=== PATIENT | male | born 1990 | race African-American/Black ===

== ENCOUNTER 2021-10-07 20:29 | Inpatient (IN) | payer OTHER, SELFPAY ==
[2021-10-07 20:37] VITALS: BMI 25.8
--- NOTE | 2021-10-07 20:43 | ED_ITS ---
HPI - Psych General Chief Complaint: Psychiatric Symptoms Stated Complaint: section 12 Time Seen by Provider: 10/07/21 20:38 Source: patient and EMS Mode of arrival: EMS Limitations: no limitations History of Present Illness HPI Narrative: Patient comes to the emergency room via EMS after being sectioned by [employer]. Patient lives in a [facility] skilled nursing. Patient states that he has been trying to be compliant with his medications but skips them sometimes. Patient states that he has been having auditory hallucinations for about a month. Patient is under a Section 12 which was started by [facility]. Patient denies any other symptoms. Patient denies suicidal or homicidal ideation Related Data Allergies Allergy/AdvReac Type Severity Reaction Status Date / Time risperidone Allergy Intermediate Shakiness Verified 10/07/21 20:44 Review of Systems Review of Systems: Constitutional : No Weight loss, No Fever, No Chills, No Night Sweats, No Fatigue, No Malaise ENT/Mouth : No Hearing loss, No Ear Pain, No Nasal Congestion, No Sinus Pain, No Hoarseness, No sore throat, No Rhinorrhea, No Swallowing Difficulty Eyes: No Eye Pain, No Swelling, No Redness, No Foreign Body, No Discharge, No Vision Changes Cardiovascular : No Chest Pain, No SOB, No Dyspnea on Exertion, No Orthopnea, No Edema, No Palpitations Respiratory : No Cough, No Sputum, No Wheezing, No Smoke Exposure, No Dyspnea Gastrointestinal : No Nausea, No Vomiting, No Diarrhea, No Constipation, No abdominal Pain, No Hematochezia, No Melena Genitourinary : no irregular bleeding, No Dysuria, No Urinary Frequency, No Hematuria, No Urinary Incontinence, No Urgency, No Flank Pain, No Urinary Flow Changes, No Hesitancy Musculoskeletal : No joint pain, No Myalgias, No Joint Swelling Skin : No Skin Lesions, No rash Neuro : No Weakness, No Numbness, No Paresthesias, No Loss of Consciousness, No Dizziness, No Headache Psych : Complaining of auditory hallucinations Heme/Lymph: No Bruising, No Bleeding,No Lymphadenopathy Endocrine : No Polyuria, No Polydipsia, No Temperature Intolerance [facility] Past Medical History Medical History (Updated 10/07/21 @ 20:47 by Page Ma MD) Schizophrenia Physical Exam Vital Signs: Vital Signs: BMI result Body Mass Index 25.8 Const: Other: Appearance: Alert. Oriented X3. No acute distress. Eyes: Pupils equal, round and reactive to light. ENT: Pharynx normal. Neck: Normal inspection. Neck supple. No lymph nodes noted. No crepitus CVS: Normal heart rate and rhythm. Pulses normal. Normal S1 and S2 Respiratory: No respiratory distress. Breath sounds normal. No Wheezing. No rales Abdomen: Soft and nontender. No rigidity. No distention. good BS x4 Skin: Skin warm and dry. Normal skin color. Normal skin turgor. Extremities: No lower extremity edema. No lower extremity edema. No Lacerations. No Rash Neuro: Oriented X 3. No motor deficit. No sensory deficit. Moving all extermities. No slurred speech. Cranial nerves 2-12 grossly intact Psych: Calm, cooperative, coherent, able to hold a normal conversation Course Course Course Narrative: Patient is already on a Section 12. [facility] is doing a bed search Position of serration started at a 20:[address] out [address] Bragg Discharge Plan Discharge Clinical Impression: Schizophrenia Patient Disposition: Still a Patient
[2021-10-07 20:52] VITALS: BP 106/65; PULSE 81; RESP 17; TEMP 36.6; O2SAT 98
[2021-10-07 21:35] LABS: COVID-19 Test Negative (Negative); IDNOW Serial# 9DD0AD1C
[2021-10-07 21:51] LABS: Amphetamine Screen Urine Not Detected (Not Detect); Barbiturates, Urine Not Detected (Not Detect); Benzodiazepines Screen Urine Not Detected (Not Detect); Cannabinoid Screen Urine Not Detected (Not Detect); Cocaine Screen Urine Not Detected (Not Detect); Fentanyl, urine Not Detected (Not Detect); Opiate Screen Urine Not Detected (Not Detect); Phencyclidine Screen Urine Not Detected (Not Detect)
[2021-10-07 21:59] LABS: Hematocrit 40.7 % (42.0-52.0); Hemoglobin 13.7 g/dl (14.0-18.0); Mean Corpuscular HGB Conc 33.7 g/dl (31.0-36.0); Mean Corpuscular Hemoglobin 30.2 pg (27.0-33.0); Mean Corpuscular Volume 89.8 fL (80.0-98.0); Mean Platelet Volume 9.1 fL (9.4-12.4); Platelet Count 192 X10*3/uL (160-400); Red Blood Count 4.53 X10*6/uL (4.60-5.80); Red Cell Distribution Width 11.9 % (11.0-16.0)
[2021-10-07 22:10] LABS: Ethanol < 10 mg/dL
[2021-10-07 22:11] LABS: Anion Gap 10 (12-20); Blood Urea Nitrogen 18 mg/dL (9-16); Calcium 9.1 mg/dL (8.4-10.2); Carbon Dioxide 27 mmol/L (22-29); Chloride 106 mmol/L (96-108); Creatinine Clr Calc Pharmacy 103.5; Estimated Glomerular Filt Rate > 60; Glucose Random 96 mg/dL (60-115); Potassium 3.8 mmol/L (3.3-5.1); Sodium 139 mmol/L (135-145)
[2021-10-08 02:06] VITALS: BP 109/69; PULSE 78; RESP 18; TEMP 36.8; O2SAT 97
--- NOTE | 2021-10-08 07:03 | PC.NURSE ---
Patient slept through the night, no distress observed/reported, VSS, behavior appropriate and cooperative, med rec completed/provider approved, disposition per [facility] is section 12 inpatient bed search, will continue to monitor.
--- NOTE | 2021-10-08 07:13 | PC.NURSE ---
patient appears to remain asleep at present respirations are even and unlabored patient appears in no distress
[2021-10-08] MEDS: Benztropine Mesylate 0.5 MG TABLET PO ×2 (09:46→20:59)
[2021-10-08 15:23] VITALS: BP 121/65; PULSE 80; RESP 15; TEMP 36.4; O2SAT 99
[2021-10-08] MEDS: hydrOXYzine HCL 25 MG TABLET PO (17:49)
--- NOTE | 2021-10-09 | ECG_ITS ---
Test Reason : MEDICAL CLEARANCE Blood Pressure : / mmHG Vent. Rate : 066 BPM Atrial Rate : 066 BPM P-R Int : 194 ms QRS Dur : 076 ms QT Int : 380 ms P-R-T Axes : 067 058 042 degrees QTc Int : 398 ms Normal sinus rhythm Normal ECG No previous ECGs available Referred By: Renata Lara Electronically Signed By:VELMA ALEX MD
[2021-10-09 02:19] VITALS: BP 131/77; PULSE 98; RESP 16; TEMP 36.6; O2SAT 98
--- NOTE | 2021-10-09 06:38 | PC.NURSE ---
Patient slept through the night, no distress observed/reported, VSS, behavior appropriate and cooperative, medication compliant, disposition per [facility] is section 12 inpatient bed search, will continue to monitor.
--- NOTE | 2021-10-09 07:30 | PC.NURSE ---
patient appears to remain asleep at present respirations are even and unlabored, patient appears in no distress
[2021-10-09] MEDS: Benztropine Mesylate 0.5 MG TABLET PO ×2 (09:04→21:00)
[2021-10-09 11:53] LABS: COVID-19 Test Negative (Negative); IDNOW Serial# 9DD0AD1C
--- NOTE | 2021-10-09 14:16 | PHA.MEDREC ---
Pharmacy Consult ? Medication Reconciliation RN has completed the medication reconciliation, pharmacy reviewed. patient from jail and pharmacy called. .
[2021-10-09 18:00] VITALS: BP 123/76; PULSE 74; TEMP 36.2; O2SAT 99
[2021-10-09] MEDS: hydrOXYzine HCL 25 MG TABLET PO (21:01)
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
[2021-10-10 06:00] VITALS: BP 119/80; PULSE 82; RESP 16; TEMP 36.6; O2SAT 99
[2021-10-10 08:57] LABS: Estimated Average Glucose 105 mg/dL; Hemoglobin A1c % 5.3 %
[2021-10-10] MEDS: Benztropine Mesylate 0.5 MG TABLET PO ×2 (09:11→19:42)
[2021-10-10 09:36] LABS: Cholesterol 185 mg/dL; HDL Cholesterol 51 mg/dL; LDL Cholesterol Calculated 122 mg/dl; Triglycerides 62 mg/dL
[2021-10-10 09:49] LABS: Free T4 (Free Thyroxine) 0.95 ng/dL (0.71-1.85); Thyroid Stimulating Hormone 0.93 uIU/mL (0.32-4.0)
[2021-10-10 10:03] LABS: Folate 10.6 ng/mL (> or = 4.0); Vitamin B12 431 pg/mL (200-900)
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
[2021-10-10 19:31] VITALS: BP 129/63; PULSE 74
[2021-10-11] MEDS: Benztropine Mesylate 0.5 MG TABLET PO ×2 (08:32→19:44)
--- NOTE | 2021-10-11 18:16 | HO.PSYCHPN ---
Subjective Subjective Date of Service: 10/11/21 Reason For Visit: Schizophrenia Interim History: pt said that AH are a little less today than yesterday; thus he agrees to remain on current med regimen for now to see if they decrease further still. Pt is open to med changes, but telegraphic typewriter operator explained limitations of Lawson order. Pt would also like to have ear exam w/ otoscope. He said if it's examined and nothing is in there, then he'll just assume the AH are wrong. telegraphic typewriter operator agreed to exam. Sleeping and eating well; no thoughts of harm Mental Status Exam Mental Status Exam Narrative: Pt is alert and oriented; behavior is cooperative, friendly and calm; patient is not in distress; dressed in hospital gown with good hygiene; mood is described as good ? affect a little blunted but not incongruent; eye contact appropriate; Speech is normal rate, volume and prosody and not pressured; no psychomotor agitation/retardation present; thought process is organized and goal directed; Thought content is on tx and on navigating AH;? otherwise pertinent to relevant topics; pt has AH and delusional idea that microphone is implanted in his head which is part of a larger project; currently no paranoid ideations; denies any SI/HI.? ?Patients insight and judgment appear impaired but improving. Diagnostics Vital Signs (24Hr): Vital Signs - 24 hr 10/10/21 19:31 Pulse Rate 74 Blood Pressure 129/63 BMI result Body Mass Index 25.8 Labs Results: 10/07/21 21:49 10/07/21 21:49 Labs: Laboratory Results - last 48 hr 10/10/21 10/10/21 10/10/21 07:59 07:59 07:59 Estimat Average Glucose 105 Hemoglobin A1c % 5.3 Magnesium 2.0 Triglycerides 62 Cholesterol 185 LDL Cholesterol, Calc 122 HDL Cholesterol 51 Vitamin B12 431 Folate 10.6 TSH 0.93 Free T4 0.95 Medications Medications Current Medications Acetaminophen (Acetaminophen 325 Mg Tablet) 650 mg PO Q6H PRN PRN Reason: Headache/Pain Mild Scale (1-3) Al Hydroxide/Mg Hydroxide (Magnesium Hydrox/Alum Hydrox 30 Ml Oral.Susp) 30 ml PO Q6H PRN PRN Reason: Heartburn/Nausea Benztropine Mesylate (Benztropine Mesylate 0.5 Mg Tablet) 0.5 mg PO BID [facility] Last Admin: 10/11/21 08:32 Dose: 0.5 mg Documented by: Haloperidol Decanoate (Haloperidol Decanoate 50 Mg/Ml Ampul) 50 mg IM Q14D [facility] Last Admin: 10/09/21 08:53 Dose: 50 mg Documented by: Haloperidol Lactate (Haloperidol Lactate 10 Mg/5 Ml Oral.Conc) 10 mg PO BID [facility] Last Admin: 10/11/21 08:32 Dose: 10 mg Documented by: Hydroxyzine HCl (Hydroxyzine Hcl 25 Mg Tablet) 25 mg PO TID PRN PRN Reason: Anxiety Last Admin: 10/09/21 21:01 Dose: 25 mg Documented by: Magnesium Hydroxide (Milk Of Magnesia 30 Ml Oral.Susp) 30 ml PO DAILY PRN PRN Reason: Constipation Pharmacy Consult (Consult Rx Perform Med Rec) 1 each MISCELLANE ONCE PRN PRN Reason: Consult order Trazodone HCl (Trazodone Hcl 50 Mg Tablet) 50 mg PO BEDTIME PRN PRN Reason: Insomnia Allergies Allergies Allergy/AdvReac Type Severity Reaction Status Date / Time risperidone Allergy Intermediate Shakiness Verified 10/07/21 20:44 Assessment & Plan Assessment & Plan (1) Schizophrenia: Status: Acute Code(s): F20.9 - Schizophrenia, unspecified Plan Patient is a 31-year-old male with history of schizophrenia On a community Lawson, who presents to ED for worsening auditory hallucinations and disorganized behavior the face of medication noncompliance. Patient is cooperative, calm, polite and well spoken. Patient received Haldol Decanoate in ED and is currently on p.o. Haldol. He remains with auditory hallucinations and delusional thinking but denies any SI or HI and has the insight to know that he needs medications to help reduce AH. He also has some skepticism about the authenticity/reality of AH. Patient is eager for treatment asking for help to reduce AH 10/11 continued reduction in AH on current regimen; no changes at this time. Pt would like otoscope exam to see if microphone implanted. Plan: CV Q 15 minute checks Received Haldol dec 50mg IM on 10/09/21 (which is [id number]) Cogentin 0.5mg bid Currently on Haldol lactate p.o. 10 mg b.i.d. -Regarding medications: Cage Tender will review medication history; it is possible that a higher dose of Haldol could reduce AH however patient is already on Cogentin; he denies side effects but may have some akathisia. It might be possible for a low dose of a lower potency antipsychotic (which has less risks for EPS) to help mitigate psychotic symptoms. Clozapine Is also an option as it has low risk for EPS/TD and can be very effective, though high risk for metabolic syndrome. Cage Tender will have to review Lawson order and see what is currently available to him -reach out for collateral; patient signed release of information I spent minutes with the patient and/or on the patient floor today, greater than?50% of which was spent counseling/coordinating care. Reason for contiued inpatient stay Substantial Risk for: med/psych decompensation
[2021-10-11 19:08] VITALS: BP 127/66; PULSE 73
[2021-10-11] MEDS: traZODone HCL 50 MG TABLET PO (22:47)
[2021-10-12] MEDS: traZODone HCL 50 MG TABLET PO (00:10)
[2021-10-12 06:00] VITALS: BP 128/84; PULSE 78; TEMP 36.3; O2SAT 99
[2021-10-12] MEDS: Benztropine Mesylate 0.5 MG TABLET PO ×2 (08:17→20:00)
--- NOTE | 2021-10-12 16:48 | HO.PSYCHPN ---
Subjective Subjective Date of Service: 10/12/21 Reason For Visit: Schizophrenia Subjective Notes: Conditional Voluntary Interim History: Met with patient and discussed with Nursing. Has been adherent with medications. Intermittent group attendance. Reports today he is feeling pretty good. Reports he has less stimuli. Has noted that voices are less. Reports they tell him things depending on the circumstance for example with entry writer voices were telling him to not say anything. Denied medication side effects and feels positive around current treatment plan. Sleep okay. Energy and appetite okay. Denied feeling depressed. Medication Compliance: Yes Side effects from medications: No Attending Groups: Intermittent Review of Systems Acute medical concerns: No Review of Systems: Unremarkable Mental Status Exam Mental Status Exam Narrative: pleasant. Appropriately engaged. [place]. Flat affect. Denied SI or HI. Is endorsing hallucinations but less intense. Aware bizarre delusions. Insight and judgment improving Diagnostics Vital Signs (24Hr): Vital Signs - 24 hr 10/11/21 19:08 10/12/21 06:00 Temperature 97.4 F Pulse Rate 73 78 Blood Pressure 127/66 128/84 Pulse Oximetry 99 BMI result Body Mass Index 25.8 Labs Results: 10/07/21 21:49 10/07/21 21:49 Medications Medications Current Medications Acetaminophen (Acetaminophen 325 Mg Tablet) 650 mg PO Q6H PRN PRN Reason: Headache/Pain Mild Scale (1-3) Al Hydroxide/Mg Hydroxide (Magnesium Hydrox/Alum Hydrox 30 Ml Oral.Susp) 30 ml PO Q6H PRN PRN Reason: Heartburn/Nausea Benztropine Mesylate (Benztropine Mesylate 0.5 Mg Tablet) 0.5 mg PO BID [facility] Last Admin: 10/12/21 08:17 Dose: 0.5 mg Documented by: Haloperidol Decanoate (Haloperidol Decanoate 50 Mg/Ml Ampul) 50 mg IM Q14D [facility] Last Admin: 10/09/21 08:53 Dose: 50 mg Documented by: Haloperidol Lactate (Haloperidol Lactate 10 Mg/5 Ml Oral.Conc) 10 mg PO BID [facility] Last Admin: 10/12/21 08:17 Dose: 10 mg Documented by: Hydroxyzine HCl (Hydroxyzine Hcl 25 Mg Tablet) 25 mg PO TID PRN PRN Reason: Anxiety Last Admin: 10/09/21 21:01 Dose: 25 mg Documented by: Magnesium Hydroxide (Milk Of Magnesia 30 Ml Oral.Susp) 30 ml PO DAILY PRN PRN Reason: Constipation Pharmacy Consult (Consult Rx Perform Med Rec) 1 each MISCELLANE ONCE PRN PRN Reason: Consult order Trazodone HCl (Trazodone Hcl 50 Mg Tablet) 50 mg PO BEDTIME PRN PRN Reason: Insomnia Last Admin: 10/12/21 00:10 Dose: 50 mg Documented by: Allergies Allergies Allergy/AdvReac Type Severity Reaction Status Date / Time risperidone Allergy Intermediate Shakiness Verified 10/07/21 20:44 Assessment & Plan Assessment & Plan (1) Schizophrenia: Status: Acute Code(s): F20.9 - Schizophrenia, unspecified Plan Patient is a 31-year-old male with history of schizophrenia On a community Lawson, who presents to ED for worsening auditory hallucinations and disorganized behavior the face of medication noncompliance. Patient is cooperative, calm, polite and well spoken. Patient received Haldol Decanoate in ED and is currently on p.o. Haldol. He remains with auditory hallucinations and delusional thinking but denies any SI or HI and has the insight to know that he needs medications to help reduce AH. He also has some skepticism about the authenticity/reality of AH. Patient is eager for treatment asking for help to reduce AH 10/11 continued reduction in AH on current regimen; no changes at this time. Pt would like otoscope exam to see if microphone implanted. Plan: CV Q 15 minute checks Received Haldol dec 50mg IM on 10/09/21 (which is [id number]) Cogentin 0.5mg bid Currently on Haldol lactate p.o. 10 mg b.i.d. -Regarding medications: Purse Framer will review medication history; it is possible that a higher dose of Haldol could reduce AH however patient is already on Cogentin; he denies side effects but may have some akathisia. It might be possible for a low dose of a lower potency antipsychotic (which has less risks for EPS) to help mitigate psychotic symptoms. Clozapine Is also an option as it has low risk for EPS/TD and can be very effective, though high risk for metabolic syndrome. Purse Framer will have to review Lawson order and see what is currently available to him -reach out for collateral; patient signed release of information 10/12: No changes to primary team treatment plan. Responding well to same. I spent minutes with the patient and/or on the patient floor today, greater than?50% of which was spent counseling/coordinating care. Reason for contiued inpatient stay Substantial Risk for: inability to function and rapid decompensation
[2021-10-13 04:56] VITALS: BP 121/82; PULSE 84; RESP 18; TEMP 36.4; O2SAT 99
[2021-10-13] MEDS: Benztropine Mesylate 0.5 MG TABLET PO ×2 (09:10→19:40)
--- NOTE | 2021-10-13 12:02 | P.PNPSI_ITS ---
Subjective Subjective Date of Service: 10/13/21 Reason For Visit: Schizophrenia Subjective Notes: Conditional Voluntary Medical Problems Affecting Mental Status: No Interim History: Seen in room. Very limited interaction today. Reports things have been going okay and nothing changed yesterday. Was slightly guarded. Overall less intense or frequent loose in a shins. Feels the medications are helpful. Sleep okay. Energy and appetite okay. Denied feeling depressed. Medication Compliance: Yes Side effects from medications: No Attending Groups: Intermittent Review of Systems Acute medical concerns: No Review of Systems Review of Systems Unremarkable Mental Status Exam Mental Status Exam Narrative: pleasant. Appropriately engaged. [place]. Flat affect. Denied SI or HI. Is endorsing hallucinations but less intense. Aware bizarre delusions. Insight and judgment improving Diagnostics Vital Signs (24Hr): Vital Signs - 24 hr 10/13/21 04:56 Temperature 97.6 F Pulse Rate 84 Respiratory Rate 18 Blood Pressure 121/82 Pulse Oximetry 99 BMI result Body Mass Index 25.8 Labs Results: 10/07/21 21:49 10/07/21 21:49 Medications Medications Current Medications Acetaminophen (Acetaminophen 325 Mg Tablet) 650 mg PO Q6H PRN PRN Reason: Headache/Pain Mild Scale (1-3) Al Hydroxide/Mg Hydroxide (Magnesium Hydrox/Alum Hydrox 30 Ml Oral.Susp) 30 ml PO Q6H PRN PRN Reason: Heartburn/Nausea Benztropine Mesylate (Benztropine Mesylate 0.5 Mg Tablet) 0.5 mg PO BID [facility] Last Admin: 10/13/21 09:10 Dose: 0.5 mg Documented by: Haloperidol Decanoate (Haloperidol Decanoate 50 Mg/Ml Ampul) 50 mg IM Q14D [facility] Last Admin: 10/09/21 08:53 Dose: 50 mg Documented by: Haloperidol Lactate (Haloperidol Lactate 10 Mg/5 Ml Oral.Conc) 10 mg PO BID [facility] Last Admin: 10/13/21 09:10 Dose: 10 mg Documented by: Hydroxyzine HCl (Hydroxyzine Hcl 25 Mg Tablet) 25 mg PO TID PRN PRN Reason: Anxiety Last Admin: 10/09/21 21:01 Dose: 25 mg Documented by: Magnesium Hydroxide (Milk Of Magnesia 30 Ml Oral.Susp) 30 ml PO DAILY PRN PRN Reason: Constipation Pharmacy Consult (Consult Rx Perform Med Rec) 1 each MISCELLANE ONCE PRN PRN Reason: Consult order Trazodone HCl (Trazodone Hcl 50 Mg Tablet) 50 mg PO BEDTIME PRN PRN Reason: Insomnia Last Admin: 10/12/21 00:10 Dose: 50 mg Documented by: Allergies Allergies Allergy/AdvReac Type Severity Reaction Status Date / Time risperidone Allergy Intermediate Shakiness Verified 10/07/21 20:44 Assessment & Plan Assessment & Plan (1) Schizophrenia: Status: Acute Code(s): F20.9 - Schizophrenia, unspecified Plan Patient is a 31-year-old male with history of schizophrenia On a community [facility], who presents to ED for worsening auditory hallucinations and disorganized behavior the face of medication noncompliance. Patient is cooperative, calm, polite and well spoken. Patient received Haldol Decanoate in ED and is currently on p.o. Haldol. He remains with auditory hallucinations and delusional thinking but denies any SI or HI and has the insight to know that he needs medications to help reduce AH. He also has some skepticism about the authenticity/reality of AH. Patient is eager for treatment asking for help to reduce AH 10/11 continued reduction in AH on current regimen; no changes at this time. Pt would like otoscope exam to see if microphone implanted. Plan: CV Q 15 minute checks Received Haldol dec 50mg IM on 10/09/21 (which is [id number]) Cogentin 0.5mg bid Currently on Haldol lactate p.o. 10 mg b.i.d. -Regarding medications: Pellet Post Inspector will review medication history; it is possible that a higher dose of Haldol could reduce AH however patient is already on Cogentin; he denies side effects but may have some akathisia. It might be possible for a low dose of a lower potency antipsychotic (which has less risks for EPS) to help mitigate psychotic symptoms. Clozapine Is also an option as it has low risk for EPS/TD and can be very effective, though high risk for metabolic syndrome. Pellet Post Inspector will have to review [facility] order and see what is currently available to him -reach out for collateral; patient signed release of information 10/13: No changes to primary team treatment plan. Responding well to same. I spent minutes with the patient and/or on the patient floor today, greater than?50% of which was spent counseling/coordinating care. Reason for contiued inpatient stay Substantial Risk for: inability to function and rapid decompensation
[2021-10-13 16:20] VITALS: BP 129/70; PULSE 72
[2021-10-14 06:00] VITALS: BP 124/64; PULSE 93; RESP 18; TEMP 36.6; O2SAT 99
[2021-10-14] MEDS: Benztropine Mesylate 0.5 MG TABLET PO ×2 (08:09→20:26)
--- NOTE | 2021-10-14 08:43 | P.PNPSI_ITS ---
Subjective Subjective Date of Service: 10/14/21 Reason For Visit: Schizophrenia Subjective Notes: Conditional Voluntary Interim History: Patient was seen and discussed in rounds today. He was seen in his room. He is interactive in a very limited way. Continues to be quite isolative. He is compliant. No complaints or side effects. Eating and sleeping adequately. No changes were made today. Questions about his stay were discussed. Medication Compliance: Yes Side effects from medications: No Attending Groups: Intermittent Review of Systems Review of Systems Yes all other systems are reviewed and are negative Mental Status Exam Mental Status Exam Narrative: In today's visit he is alert, oriented and minimally interactive. In speech is soft-spoken. He has little to no eye contact. Affect is flat. He admits to auditory hallucinations but states that they are less. Some delusions reported. No SI. Cognitively he has slow thought processes. Judgment is intact Diagnostics Vital Signs (24Hr): Vital Signs - 24 hr 10/13/21 16:20 10/14/21 06:00 Temperature 97.8 F Pulse Rate 72 93 Respiratory Rate 18 Blood Pressure 129/70 124/64 Pulse Oximetry 99 BMI result Body Mass Index 25.8 Labs Results: 10/07/21 21:49 10/07/21 21:49 Medications Medications Current Medications Acetaminophen (Acetaminophen 325 Mg Tablet) 650 mg PO Q6H PRN PRN Reason: Headache/Pain Mild Scale (1-3) Al Hydroxide/Mg Hydroxide (Magnesium Hydrox/Alum Hydrox 30 Ml Oral.Susp) 30 ml PO Q6H PRN PRN Reason: Heartburn/Nausea Benztropine Mesylate (Benztropine Mesylate 0.5 Mg Tablet) 0.5 mg PO BID [facility] Last Admin: 10/14/21 08:09 Dose: 0.5 mg Documented by: Haloperidol Decanoate (Haloperidol Decanoate 50 Mg/Ml Ampul) 50 mg IM Q14D [facility] Last Admin: 10/09/21 08:53 Dose: 50 mg Documented by: Haloperidol Lactate (Haloperidol Lactate 10 Mg/5 Ml Oral.Conc) 10 mg PO BID [facility] Last Admin: 10/14/21 08:09 Dose: 10 mg Documented by: Hydroxyzine HCl (Hydroxyzine Hcl 25 Mg Tablet) 25 mg PO TID PRN PRN Reason: Anxiety Last Admin: 10/09/21 21:01 Dose: 25 mg Documented by: Magnesium Hydroxide (Milk Of Magnesia 30 Ml Oral.Susp) 30 ml PO DAILY PRN PRN Reason: Constipation Pharmacy Consult (Consult Rx Perform Med Rec) 1 each MISCELLANE ONCE PRN PRN Reason: Consult order Trazodone HCl (Trazodone Hcl 50 Mg Tablet) 50 mg PO BEDTIME PRN PRN Reason: Insomnia Last Admin: 10/12/21 00:10 Dose: 50 mg Documented by: Allergies Allergies Allergy/AdvReac Type Severity Reaction Status Date / Time risperidone Allergy Intermediate Shakiness Verified 10/07/21 20:44 Assessment & Plan Assessment & Plan (1) Schizophrenia: Status: Acute Code(s): F20.9 - Schizophrenia, unspecified Plan Patient is a 31-year-old male with history of schizophrenia On a community [facility], who presents to ED for worsening auditory hallucinations and disorganized behavior the face of medication noncompliance. Patient is cooperative, calm, polite and well spoken. Patient received Haldol Decanoate in ED and is currently on p.o. Haldol. He remains with auditory hallucinations and delusional thinking but denies any SI or HI and has the insight to know that he needs medications to help reduce AH. He also has some skepticism about the authenticity/reality of AH. Patient is eager for treatment asking for help to reduce AH 10/11 continued reduction in AH on current regimen; no changes at this time. Pt would like otoscope exam to see if microphone implanted. Plan: CV Q 15 minute checks Received Haldol dec 50mg IM on 10/09/21 (which is [id number]) Cogentin 0.5mg bid Currently on Haldol lactate p.o. 10 mg b.i.d. -Regarding medications: Maintainability Engineer will review medication history; it is possible that a higher dose of Haldol could reduce AH however patient is already on Cogentin; he denies side effects but may have some akathisia. It might be possible for a low dose of a lower potency antipsychotic (which has less risks for EPS) to help mitigate psychotic symptoms. Clozapine Is also an option as it has low risk for EPS/TD and can be very effective, though high risk for metabolic syndrome. Maintainability Engineer will have to review [facility] order and see what is currently available to him -reach out for collateral; patient signed release of information 10/13: No changes to primary team treatment plan. Responding well to same. 10/14/21. Continue current regimen and plans. I spent minutes with the patient and/or on the patient floor today, greater than?50% of which was spent counseling/coordinating care. Reason for contiued inpatient stay Substantial Risk for: med/psych decompensation
[2021-10-14 18:00] VITALS: BP 112/67; PULSE 86
[2021-10-14] MEDS: traZODone HCL 50 MG TABLET PO (21:22)
[2021-10-15 06:00] VITALS: BP 115/64; PULSE 81; RESP 17; TEMP 36.5; O2SAT 99
[2021-10-15] MEDS: Benztropine Mesylate 0.5 MG TABLET PO ×2 (08:06→20:37)
--- NOTE | 2021-10-15 17:34 | HO.PSYCHPN ---
Subjective Subjective Date of Service: 10/15/21 Reason For Visit: Schizophrenia Interim History: Patient pleasant, calm and polite. He says that his mood is overall good and that auditory hallucinations are nearly absent. He says that he is internally quiet. Patient feels that current medication dose is adequate and says that he explains that AH probably started to increase because he was only intermittently taking his p.o. Haldol. Patient said that he wanted to find a different method other than medication to treat his auditory hallucinations however he has come to the conclusion that he just needs to consistently take [Haldol]. Patient had asked check writer salesperson to examine ear canal for inserted microphone. Assignment Manager did examination with otoscope and told patient that ear canal up to the tympanic membrane are clear, no microphone. Patient concluded that the auditory hallucinations were just wrong and felt satisfied with these results. Patient said he is feeling ready to discharge home. Mental Status Exam Mental Status Exam Narrative: Pt is alert and oriented; behavior is cooperative, friendly and calm; patient is not in distress; dressed in hospital gown with good hygiene; mood is described as good ? affect a little blunted but not incongruent; eye contact appropriate; Speech is normal rate, volume and prosody and not pressured; no psychomotor agitation/retardation present; thought process is organized, logical and goal directed; Thought content is on tx and on navigating AH;? otherwise pertinent to relevant topics; reports AH resolved; remains with concern regarding delusional idea that microphone is implanted in his head which is part of a larger project, however has insight to accept that this is not true following negative otoscope exam; no paranoid ideations; denies any SI/HI.??Patients insight and judgment are impaired but adequate and likely near or at baseline. Diagnostics Vital Signs (24Hr): Vital Signs - 24 hr 10/14/21 18:00 10/15/21 06:00 Temperature 97.7 F Pulse Rate 86 81 Respiratory Rate 17 Blood Pressure 112/67 115/64 Pulse Oximetry 99 BMI result Body Mass Index 25.8 Labs Results: 10/07/21 21:49 10/07/21 21:49 Medications Medications Current Medications Acetaminophen (Acetaminophen 325 Mg Tablet) 650 mg PO Q6H PRN PRN Reason: Headache/Pain Mild Scale (1-3) Al Hydroxide/Mg Hydroxide (Magnesium Hydrox/Alum Hydrox 30 Ml Oral.Susp) 30 ml PO Q6H PRN PRN Reason: Heartburn/Nausea Benztropine Mesylate (Benztropine Mesylate 0.5 Mg Tablet) 0.5 mg PO BID [facility] Last Admin: 10/15/21 08:06 Dose: 0.5 mg Documented by: Haloperidol Decanoate (Haloperidol Decanoate 50 Mg/Ml Ampul) 50 mg IM Q14D [facility] Last Admin: 10/09/21 08:53 Dose: 50 mg Documented by: Haloperidol Lactate (Haloperidol Lactate 10 Mg/5 Ml Oral.Conc) 10 mg PO BID [facility] Last Admin: 10/15/21 08:06 Dose: 10 mg Documented by: Hydroxyzine HCl (Hydroxyzine Hcl 25 Mg Tablet) 25 mg PO TID PRN PRN Reason: Anxiety Last Admin: 10/09/21 21:01 Dose: 25 mg Documented by: Magnesium Hydroxide (Milk Of Magnesia 30 Ml Oral.Susp) 30 ml PO DAILY PRN PRN Reason: Constipation Pharmacy Consult (Consult Rx Perform Med Rec) 1 each MISCELLANE ONCE PRN PRN Reason: Consult order Trazodone HCl (Trazodone Hcl 50 Mg Tablet) 50 mg PO BEDTIME PRN PRN Reason: Insomnia Last Admin: 10/14/21 21:22 Dose: 50 mg Documented by: Allergies Allergies Allergy/AdvReac Type Severity Reaction Status Date / Time risperidone Allergy Intermediate Shakiness Verified 10/07/21 20:44 Assessment & Plan Assessment & Plan (1) Schizophrenia: Status: Acute Code(s): F20.9 - Schizophrenia, unspecified Plan Patient is a 31-year-old male with history of schizophrenia On a [facility], who presents to ED for worsening auditory hallucinations and disorganized behavior the face of medication noncompliance. Patient is cooperative, calm, polite and well spoken. Patient received Haldol Decanoate in ED and is currently on p.o. Haldol. He remains with auditory hallucinations and delusional thinking but denies any SI or HI and has the insight to know that he needs medications to help reduce AH. He also has some skepticism about the authenticity/reality of AH. Patient is eager for treatment asking for help to reduce AH 10/11 continued reduction in AH on current regimen; no changes at this time. Pt would like otoscope exam to see if microphone implanted. 10/15 Pt reports mood is good. He mostly isolates to himself staying in his room however is fully cooperative on approach and has remained in good behavioral and impulse control, calm, polite and cooperative throughout his admission. AH started to lessen as patient got back on consistent p.o. dose of Haldol and on his own patient has come to realize that consistently taking Haldol is adequate to resolve auditory hallucinations and says he will continue to do so. AH has now fully resolved or nearly so. He remains in good mood, without any SI or HI. His thought process is organized, logical and goal directed; he remained with concern regarding delusional idea that microphone is implanted in his head, but had insight to accept that this is not true following negative otoscope exam; no paranoid ideations. Patients insight and judgment are impaired but adequate and likely near or at baseline. Team will discuss with patient's outpatient case workers/residential about discharge and returning home Plan: CV Q 15 minute checks Haldol dec 50mg IM on 10/09/21 (which is [id number]) Cogentin 0.5mg bid Haldol lactate p.o. 10 mg b.i.d. -Regarding medications: Assignment Manager will review medication history; it is possible that a higher dose of Haldol could reduce AH however patient is already on Cogentin; he denies side effects but may have some akathisia. It might be possible for a low dose of a lower potency antipsychotic (which has less risks for EPS) to help mitigate psychotic symptoms. Clozapine Is also an option as it has low risk for EPS/TD and can be very effective, though high risk for metabolic syndrome. Assignment Manager will have to review [facility] order and see what is currently available to him -reach out for collateral; patient signed release of information I spent minutes with the patient and/or on the patient floor today, greater than?50% of which was spent counseling/coordinating care. Reason for contiued inpatient stay Substantial Risk for: stable for discharge
[2021-10-15 18:00] VITALS: BP 118/73; PULSE 73; TEMP 36.1; O2SAT 98
[2021-10-16 06:00] VITALS: BP 127/70; PULSE 92; TEMP 36.6; O2SAT 98
[2021-10-16] MEDS: Benztropine Mesylate 0.5 MG TABLET PO ×2 (08:06→21:18)
[2021-10-16] MEDS: Milk of Magnesia 30 ML ORAL.SUSP PO (15:55)
[2021-10-16 16:00] VITALS: BP 110/71; PULSE 97; TEMP 35.9
--- NOTE | 2021-10-16 23:08 | HO.PSYCHPN ---
Subjective Subjective Date of Service: 10/16/21 Reason For Visit: Schizophrenia Interim History: Patient reports that he is Good And that voices remain quiet. Patient has no complaints and feels ready for discharge home. Denies any SI or HI. Patient and entry writer discussed some of his history and patient has taken numerous College courses and hopes to completed degree at some point. Patient has remained calm, in good behavioral and impulse control throughout his stay in the unit; he has remained with organized speech and behavior and has been willing to reality test paranoid delusional thoughts, now accepting that these thoughts are untrue. Patient appears stable and to be at baseline. Mental Status Exam Mental Status Exam Narrative: Pt is alert and oriented; behavior is cooperative, friendly and calm; patient is not in distress; dressed in hospital gown with good hygiene; mood is described as good ? affect a little blunted but not incongruent; eye contact appropriate; Speech is normal rate, volume and prosody and not pressured; no psychomotor agitation/retardation present; thought process is organized, logical and goal directed; Thought content is on tx and on navigating AH;? otherwise pertinent to relevant topics; reports AH resolved; remains with concern regarding delusional idea that microphone is implanted in his head which is part of a larger project, however has insight to accept that this is not true following negative otoscope exam; no paranoid ideations; denies any SI/HI.??Patients insight and judgment are impaired but adequate and likely near or at baseline. Diagnostics Vital Signs (24Hr): Vital Signs - 24 hr 10/16/21 06:00 10/16/21 16:00 Temperature 97.8 F 96.6 F L Pulse Rate 92 97 Blood Pressure 127/70 110/71 Pulse Oximetry 98 BMI result Body Mass Index 25.8 Labs Results: 10/07/21 21:49 10/07/21 21:49 Medications Medications Current Medications Acetaminophen (Acetaminophen 325 Mg Tablet) 650 mg PO Q6H PRN PRN Reason: Headache/Pain Mild Scale (1-3) Al Hydroxide/Mg Hydroxide (Magnesium Hydrox/Alum Hydrox 30 Ml Oral.Susp) 30 ml PO Q6H PRN PRN Reason: Heartburn/Nausea Benztropine Mesylate (Benztropine Mesylate 0.5 Mg Tablet) 0.5 mg PO BID [facility] Last Admin: 10/16/21 21:18 Dose: 0.5 mg Documented by: Haloperidol Decanoate (Haloperidol Decanoate 50 Mg/Ml Ampul) 50 mg IM Q14D [facility] Last Admin: 10/09/21 08:53 Dose: 50 mg Documented by: Haloperidol Lactate (Haloperidol Lactate 10 Mg/5 Ml Oral.Conc) 10 mg PO BID [facility] Last Admin: 10/16/21 21:18 Dose: 10 mg Documented by: Hydroxyzine HCl (Hydroxyzine Hcl 25 Mg Tablet) 25 mg PO TID PRN PRN Reason: Anxiety Last Admin: 10/09/21 21:01 Dose: 25 mg Documented by: Magnesium Hydroxide (Milk Of Magnesia 30 Ml Oral.Susp) 30 ml PO DAILY PRN PRN Reason: Constipation Last Admin: 10/16/21 15:55 Dose: 30 ml Documented by: Pharmacy Consult (Consult Rx Perform Med Rec) 1 each MISCELLANE ONCE PRN PRN Reason: Consult order Trazodone HCl (Trazodone Hcl 50 Mg Tablet) 50 mg PO BEDTIME PRN PRN Reason: Insomnia Last Admin: 10/14/21 21:22 Dose: 50 mg Documented by: Allergies Allergies Allergy/AdvReac Type Severity Reaction Status Date / Time risperidone Allergy Intermediate Shakiness Verified 10/07/21 20:44 Assessment & Plan Assessment & Plan (1) Schizophrenia: Status: Acute Code(s): F20.9 - Schizophrenia, unspecified Plan Patient is a 31-year-old male with history of schizophrenia On a community [facility], who presents to ED for worsening auditory hallucinations and disorganized behavior the face of medication noncompliance. Patient is cooperative, calm, polite and well spoken. Patient received Haldol Decanoate in ED and is currently on p.o. Haldol. He remains with auditory hallucinations and delusional thinking but denies any SI or HI and has the insight to know that he needs medications to help reduce AH. He also has some skepticism about the authenticity/reality of AH. Patient is eager for treatment asking for help to reduce AH 10/11 continued reduction in AH on current regimen; no changes at this time. Pt would like otoscope exam to see if microphone implanted. 10/15 Pt reports mood is good. He mostly isolates to himself staying in his room however is fully cooperative on approach and has remained in good behavioral and impulse control, calm, polite and cooperative throughout his admission. AH started to lessen as patient got back on consistent p.o. dose of Haldol and on his own patient has come to realize that consistently taking Haldol is adequate to resolve auditory hallucinations and says he will continue to do so. AH has now fully resolved or nearly so. He remains in good mood, without any SI or HI. His thought process is organized, logical and goal directed; he remained with concern regarding delusional idea that microphone is implanted in his head, but had insight to accept that this is not true following negative otoscope exam; no paranoid ideations. Patients insight and judgment are impaired but adequate and likely near or at baseline. Team will discuss with patient's outpatient case workers/nursing home about discharge and returning home 10/16 Patient remains calm, in good behavioral and impulse control with organized speech and behavior; he demonstrates judgement and insight by having been willing to confront his paranoid delusional thoughts with reality testing and now accepting that some of his delusional thoughts are untrue. Patient appears stable and to be at baseline. He is not in imminent risk for harm to self or others and is appropriate for discharge Plan: CV Q 15 minute checks Haldol dec 50mg IM on 10/09/21 (which is [id number]) Cogentin 0.5mg bid Haldol lactate p.o. 10 mg b.i.d. -Regarding medications: Textile Finisher will review medication history; it is possible that a higher dose of Haldol could reduce AH however patient is already on Cogentin; he denies side effects but may have some akathisia. It might be possible for a low dose of a lower potency antipsychotic (which has less risks for EPS) to help mitigate psychotic symptoms. Clozapine Is also an option as it has low risk for EPS/TD and can be very effective, though high risk for metabolic syndrome. Textile Finisher will have to review [facility] order and see what is currently available to him -reach out for collateral; patient signed release of information I spent minutes with the patient and/or on the patient floor today, greater than?50% of which was spent counseling/coordinating care. Reason for contiued inpatient stay Substantial Risk for: stable for discharge
[2021-10-17 06:00] VITALS: BP 114/70; PULSE 76; RESP 16; TEMP 36.3; O2SAT 99
[2021-10-17] MEDS: Benztropine Mesylate 0.5 MG TABLET PO (09:10)
--- NOTE | 2021-10-17 09:46 | PM.PSYDC ---
DS: Providers Provider Date of Service: 10/17/21 Date of admission: 10/09/21 14:43 Date of discharge: 10/17/21 Primary care physician: Unknown Physician Attending physician on admission: Dmitry Easley Attending physician on discharge: Dmitry Easley DS: Diagnosis Discharge Diagnosis (1) Schizophrenia: Status: Acute DS: Medications Discharge Medications Home Medications: Previous Rx's Medication Instructions Recorded acetaminophen 325 mg tablet 650 mg PO Q6H PRN #0 tab 10/16/21 aluminum-magnesium hydroxide 200 30 ml PO Q6H PRN #0 ml 10/16/21 mg-200 mg/5 mL oral suspension (MAG-AL) benztropine 0.5 mg tablet 0.5 mg PO BID 30 Days #60 tab 10/16/21 haloperidol decanoate 50 mg/mL 50 mg IM Q2W 14 Days #1 ml 10/16/21 intramuscular solution (Haldol Decanoate) haloperidol lactate 2 mg/mL oral 10 mg (5 mL) PO BID 30 Days #300 ml 10/16/21 concentrate hydroxyzine pamoate 25 mg capsule 25 mg PO TID PRN 30 Days #90 cap 10/16/21 (Vistaril) magnesium hydroxide 400 mg/5 mL 30 ml PO DAILY PRN #0 ml 10/16/21 oral suspension (Milk of Magnesia) saliva substitute combo no.9 1 ea PO BID PRN 30 Days #237 ml 10/16/21 (Biotene Dry Mouth Oral Rinse) trazodone 50 mg tablet 50 mg PO BEDTIME PRN 30 Days #30 10/16/21 tab Mental Status Exam Mental Status Exam Narrative: Pt is alert and oriented; behavior is cooperative, friendly and calm; patient is not in distress; dressed in casual, appropriate cloths with good hygiene; mood is described as good ? affect a little blunted but not incongruent; eye contact appropriate; Speech is normal rate, volume and prosody and not pressured; no psychomotor agitation/retardation present; thought process is organized, logical and goal directed; Thought content is on tx and on navigating AH;? otherwise pertinent to relevant topics; reports AH resolved; delusional idea that microphone is implanted in his head resolved (following negative otoscope exam); no paranoid ideations; denies any SI/HI.??Patients insight and judgment are impaired but adequate and at baseline. Data Data Completed and Pending Completed studies during hospitalization [Text1]: 10/10/21 10/10/21 07:59 07:59 Vitamin B12 431 Folate 10.6 TSH 0.93 Free T4 0.95 DS: Summary Hospital Course Hospital Course: Patient is a 31-year-old male with history of schizophrenia On a community [place], who presents to ED for worsening auditory hallucinations and disorganized behavior the face of medication noncompliance. Patient is cooperative, calm, polite and well spoken. Patient received Haldol Decanoate in ED and is currently on p.o. Haldol.? He remains with auditory hallucinations and delusional thinking but denies any SI or HI and has the insight to know that he needs medications to help reduce AH.? He also has some skepticism about the authenticity/reality of AH.? Patient is eager for treatment asking for help to reduce AH 10/11 continued reduction in AH on current regimen; no changes at this time. Pt would like otoscope exam to see if microphone implanted. 10/15? Pt reports mood is good. He mostly isolates to himself staying in his room however is fully cooperative on approach and has remained in good behavioral and impulse control, calm, polite and cooperative throughout his admission.? AH started to lessen as patient got back on consistent p.o. dose of Haldol and on his own patient has come to realize that consistently taking Haldol is adequate to resolve auditory hallucinations and says he will continue to do so.? AH has now fully resolved or nearly so.? He remains in good mood, without any SI or HI.? His thought process is organized, logical and goal directed; he remained with concern regarding delusional idea that microphone is implanted in his head, but had insight to accept that this is not true following negative otoscope exam; no paranoid ideations. Patients insight and judgment are impaired but are much improved and adequate and likely near or at baseline.? Team discussed this with patient's outpatient case workers/senior care about discharge and returning home. Throughout patient's time on the unit, he remained calm, friendly and polite in good behavioral and impulse control with organized speech and behavior; patient did not exhibit any unsafe behaviors and was appropriate with both peers and staff. He demonstrates significantly improved judgment and insight, confronting his paranoid delusional thoughts with reality testing; he reports that he knows (some of) his delusional thoughts are untrue and due to the symptoms of schizophrenia which he acknowledges he has. He denies any HI, SI and auditory hallucinations remain quiet. 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 Patient is stable and appears to be at baseline.? Given patient's history it is likely that he will at some point again decompensate and struggle to cope with symptoms. However, this is a chronic struggle for patient and since he is currently stable, does not require further time on inpatient unit. Patient is currently not in imminent risk for harm to self or others and is appropriate for discharge. Time spent discussing smoking cessation with patient: 3 to 10 minutes Status at Discharge Functional status at discharge: independent ambulation Overall status at discharge: patient is back to baseline Time Spent with Patient Time attestation: Total time spent providing and/or coordinating discharge services: Time spent: Less than 30 minutes Discharge Plan Discharge Patient Disposition: Home, Self-Care Discharge Diagnosis: Schizophrenia, paranoid type Referrals: Prescriber: Alexa Thayer ([facility]) [Other] - 11/07/21 1:00 pm (Telehealth ) Therapy Referral: [facility] [Other] - 1 Week (*Referral is submitted; they will call to ask more questions and then put you on their wait list which is 2-6 weeks) Brooke Mooney MD [Physician] - 10/24/21 2:25 pm (IN OFFICE, DR. CAL APONTE) Discharge Medications: New acetaminophen 325 mg Tablet 650 mg PO Q6H PRN (Reason: Headache/Pain Mild Scale (1-3)) Qty: 0 0RF trazodone 50 mg Tablet 50 mg PO BEDTIME PRN (Reason: Insomnia) 30 Days Qty: 30 0RF MAG-AL 200-200 mg/5 mL Suspension 30 ml PO Q6H PRN (Reason: Heartburn/Nausea) Qty: 0 0RF magnesium hydroxide [Milk of Magnesia] 400 mg/5 mL Suspension 30 ml PO DAILY PRN (Reason: Constipation) Qty: 0 0RF Continued Biotene Dry Mouth Oral Rinse Mouthwash 1 ea PO BID PRN (Reason: Dry Mouth) 30 Days Qty: 237 0RF Changed benztropine 0.5 mg tablet 0.5 mg PO BID 30 Days Qty: 60 0RF haloperidol decanoate [Haldol Decanoate] 50 mg/mL solution 50 mg IM Q2W 14 Days Qty: 1 1RF Rx Instructions: last dose 10/09/21 haloperidol lactate 2 mg/mL concentrate 10 mg PO BID 30 Days Qty: 300 0RF hydroxyzine pamoate [Vistaril] 25 mg capsule 25 mg PO TID PRN (Reason: Anxiety) 30 Days Qty: 90 0RF Discharge Orders: Discharge Order (Routine); Ordered 10/17/21 Ordered By: Dmitry Easley Diet: regular diet Activity on Discharge: As tolerated Stand Alone Forms: Patient Portal Discharge page, Community Support Care Plan Goals: Maintain mood and safe behaviors Take medications as prescribed Practice coping skills Continue with outpatient providers and reach out to them as needed Health Concerns: Mood stability and behaviors Plan of Treatment: Follow up with your PCP, psychiatric provider and other outpatient providers regarding above concerns Take medications as prescribed Assessment: Risk assessment at time of discharge:? Patient was interviewed prior to discharge and found to be fully oriented and without any SI or HI. Patient has insight and demonstrates good judgment in terms of wanting to pursue treatment. Patient is not in imminent risk of harm to self or others and has a safety plan that includes presenting to the closest ER or calling 911 if feeling unsafe.? Patient has been observed closely by nursing and unit staff throughout admission; patient has not engaged in any behaviors that suggest dangerousness to self or others and has demonstrated appropriate behaviors and impulse control Discharge Date/Time: 10/17/21 13:38
== END 2021-10-17 13:38 | disposition home or self-care (01) | DRG 885 ==
LOC: HO.ED 21:21 → HO.PM5 10-09 14:47
PROVIDERS: Clinical Nurse Specialist Psychiatric/Mental Health, Adult; Nurse Practitioner Family; Admitting Provider Psychiatry & Neurology Psychiatry; Emergency Provider Emergency Medicine; Visit Provider Psychiatry & Neurology Psychiatry
DX: F20.0 Paranoid schizophrenia (principal); Z20.822 Contact with and (suspected) exposure to COVID-19; Z79.899 Other long term (current) drug therapy
CPT/HCPCS: 36415; 80048; 80061; 80307; 82077; 82607; 82746; 83036; 83735; 84439; 84443; 85027; 87635; 93005; 96372; 99285